=== PATIENT | female | born 1935 | race Caucasian/White ===

== ENCOUNTER 2017-04-15 13:00 | Inpatient (IN) | payer MEDICARE, BC ==
[~2017-04-15] VITALS: Ht 160 cm; Wt 84.1 kg
--- NOTE | ~2017-04-15 | OR ---
PATIENT'S NAME: PANCHO HANSEN [facility] AGE: 81 Y [address] ROOM: [place] [address] LOCATION: [facility] ADMIT DATE: 04/25/2017 OR/Procedure Report DISCHARGE DATE: FAMILY PHYSICIAN: Pancho Presley ATTENDING PHYSICIAN: ALLISON RUSHING SURGEON: Allison Rushing MD PULLING UNIT FLOORHAND: 1. KELLEN Romero. 2. Tam Stapleton CST/S3B MULTI SENSOR OPERATOR. DATE OF PROCEDURE: 04/25/2017 PREOPERATIVE DIAGNOSIS: Degenerative joint disease, left knee. POSTOPERATIVE DIAGNOSIS: Degenerative joint disease, left knee. OPERATION: Left total knee arthroplasty with computer navigation. ANESTHESIA: Spinal anesthesia plus adductor canal block plus periarticular local anesthesia (ropivacaine with epinephrine and Toradol). ESTIMATED BLOOD LOSS: Less than 10 mL. DRAIN: None. SPECIMEN: None. COMPLICATIONS: None. IMPLANT SYSTEM: [place] Triathlon. 1. Size 3 left posterior stabilized femoral component. 2. Size 2 universal modular tibial baseplate. 3. A 9 mm posterior stabilized size 2 X3 tibial polyethylene insert. 4. A 29 mm asymmetric X3 patellar component. INDICATIONS FOR SURGERY: Pancho Hansen is an 81-year-old female who presents with advanced left knee degenerative joint disease and associated severely compromised activities of daily living. The patient has decided to proceed with knee replacement after having been thoroughly counseled regarding the associated risks, benefits, and limitations. We have specifically reviewed the risks and implications of infection, deep venous thrombosis, pulmonary embolism, mortality, neurovascular complications, blood transfusion (and associated potential for disease transmission or transfusion reaction), stiffness, instability, mechanical deterioration of the components (due to wear and or loosening), and the potential need for revision. We have also emphasized the importance of active involvement and compliance with post- operative physical therapy as a means of optimizing range of motion and PATIENT'S NAME: PANCHO HANSEN [facility] AGE: 81 Y [address] ROOM: [place] [address] LOCATION: [facility] ADMIT DATE: 04/25/2017 OR/Procedure Report DISCHARGE DATE: FAMILY PHYSICIAN: Pancho Presley ATTENDING PHYSICIAN: ALILSON RUSHING functional recovery. Informed consent has been granted. DESCRIPTION OF PROCEDURE: The patient was positioned supine after administration of anesthesia and prophylactic antibiotics. A well-padded pneumatic tourniquet was placed around the left proximal thigh, and the left lower extremity was prepped and draped with vigilant sterile technique. The patient's name as well as the intended operative side and procedure were confirmed with a verbal time-out involving myself, the circulating nurse, the scrub nurse, and the anesthesiologist. Examination under anesthesia demonstrated a moderate effusion. There were no active skin lesions or masses. There was no erythema. There was no abnormal warmth. Range of motion under anesthesia was from full extension to 125 degrees of flexion. There was no ligamentous insufficiency. The left lower extremity was elevated and exsanguinated with an Esmarch wrap, and the pneumatic tourniquet was inflated to 300mmHg. The knee was approached through a longitudinal midline incision. A medial parapatellar arthrotomy was performed and the patella was everted. Examination of the joint space demonstrated a large amount of benign-appearing translucent synovial fluid. There was generalized mild nonproliferative synovitis. There was a 5 mm loose body at the posterior aspect of the medial compartment. The cruciate ligaments were intact. There were small osteophytes at the medial femoral condyle, lateral femoral condyle, medial tibial plateau, inferior patella, and lateral patella. There was full-thickness loss of articular cartilage involving approximately 50% of the medial half of the femoral trochlea, 80% of the medial femoral condyle, and a 2 cm diameter region at the medial half of the medial tibial plateau. There was high-grade partial-thickness articular cartilage loss involving the remainder of the medial compartment. There were moderate grade 3 degenerative changes at the medial facet of the patella and the apex of the patella. There were grade 2 degenerative changes at the lateral femoral condyle and lateral tibial plateau. The lateral meniscus was intact. There was moderate inner perimeter tearing and moderate chondrocalcinosis at the medial meniscus. Remnants of the menisci and cruciate ligaments were excised. The Listia computer navigation femoral tracker was pinned in place at the distal aspect of the femoral trochlea. Absence of motion between the femur and the tracking device was confirmed manually and visually. Femoral osseous landmarks were obtained in order to calibrate the computer navigation system. Landmarks included the center of rotation of the ipsilateral hip, the center-point of the distal femur, the femoral AP axis, 57 points on the medial femoral condyle articular surface, and 57 points on the lateral femoral condyle articular surface. The Listia computer navigation system was subsequently utilized PATIENT'S NAME: PANCHO HANSEN [facility] AGE: 81 Y [address] ROOM: [id number] [place], [place] [address] LOCATION: [facility] ADMIT DATE: 04/25/2017 OR/Procedure Report DISCHARGE DATE: FAMILY PHYSICIAN: Pancho Presley ATTENDING PHYSICIAN: ALLISON RUSHING to position the distal femoral resection block such that the distal femoral resection was performed perfectly perpendicular to the femoral mechanical axis. The distal femoral resection was performed with a [employer] oscillating saw. The Listia computer navigation tibial tracker was pinned in place at the anterior aspect of the tibial plateau. Absence of motion between the tibia and the tracking device was confirmed manually and visually. Tibial osseous landmarks were obtained in order to calibrate the computer navigation system. Landmarks included the center-point of the tibial plateau, the AP tibial axis, 57 points on the medial tibial plateau articular surface, 57 points on the lateral tibial plateau articular surface, the medial malleolus, and the lateral malleolus. The Listia computer navigation system was subsequently utilized to position the proximal tibial resection block such that the proximal tibial resection was performed perfectly perpendicular to the tibial mechanical axis. The proximal tibial resection was performed with a [employer]ision oscillating saw. Perpendicularity of the tibial resection with respect to the tibial shaft axis was reconfirmed by inserting a spacer- block attached to an extramedullary guide carolyn. External rotation of the anterior and posterior femoral resections was set parallel to the epicondylar axis and carefully adjusted in order to create a rectangular flexion gap. The box resection was performed with a reciprocating saw. Anterior and posterior chamfer resections were performed with the oscillating saw. Posterior condyle osteophytes were excised with an osteotome. All other osteophytes were excised with a rongeur. Resection of all remnants of the menisci was reconfirmed. Flexion and extension gaps were confirmed to be symmetric and well balanced with a spacer-block technique. The patella resection was performed with an oscillating saw such that the composite thickness of the reconstructed patella was equivalent to the thickness of the [place] patella. Patella tracking was optimal, and there was no need for a lateral retinacular release. All trial components were removed and all prepared osseous surfaces were thoroughly irrigated with pulsatile saline lavage and dried prior to cementing all three components in a single stage using [place] Simplex cement containing pre-mixed tobramycin. All extruded excess cement was removed. The entire joint space was thoroughly inspected and thoroughly irrigated with bacteriostatic pulsatile saline lavage to assure that there was no residual debris of any sort. Final range of motion was from full extension (with no passive hyperextension) to 130 degrees of flexion. Patella tracking was reconfirmed to be optimal. There was very good anteroposterior stability at 90 degrees of flexion. There PATIENT'S NAME: PANCHO HANSEN [facility] AGE: 81 Y [address] ROOM: [place] [address] LOCATION: [facility] ADMIT DATE: 04/25/2017 OR/Procedure Report DISCHARGE DATE: FAMILY PHYSICIAN: Pancho Presley ATTENDING PHYSICIAN: ALLISON RUSHING was 0 mm of medial lift-off to valgus stress in full extension. There was 1 mm of lateral lift-off to varus stress in full extension. The arthrotomy was closed with multiple simple and [id number] interrupted #1 Vicryl. Subcutaneous tissues were thoroughly re-irrigated with bacteriostatic pulsatile saline lavage. Subcutaneous tissues were re- approximated with simple buried interrupted #0 Vicryl sutures. The skin was closed with simple buried interrupted 2-0 Vicryl sutures followed by surgical noam. The dressing consisted of Xeroform gauze, 4x4 gauze, ABD pads and two 6-inch Jason Wraps. There were no intra-operative complications. It should be noted that the physician's assistant customer service manager played an active, integral role throughout this entire operation. By providing expert retraction, they greatly facilitated and expedited safe and effective exposure of the distal femur, proximal tibia and patella for preparation and implantation of the components. They were also actively involved in the patient's positioning, prepping and draping, as well as wound closure. MD POLO PARKS/grover /[id number] d: t: 09/08/17 1205, OPERATIVE SUMMARY
--- NOTE | ~2017-04-15 | CON ---
PATIENT'S NAME: PANCHO HANSEN [facility] AGE: 81 Y [address] ROOM: [place] [address] LOCATION: [facility] ADMIT DATE: 04/25/2017 Consultation DISCHARGE DATE: 04/28/2017 FAMILY PHYSICIAN: Pancho Presley ATTENDING PHYSICIAN: Grant Francis REFERRING PHYSICIAN: Thiago Stephenson MD REFERRING PHYSICIAN: Grant Francis MD REASON FOR CONSULT: Continued bradycardia. HISTORY OF PRESENT ILLNESS: This is an 81-year-old female who underwent a left knee replacement and has been bradycardic since surgery. She normally sees Dr. Crowley from [facility] and had seen him on 04/18/2017. At that time, her heart rate was reported at 71. She states that she carries a history of pulmonary embolus with DVT x2. She had recently worn a Holter monitor, mainly for a tachycardic event, although she cannot decipher which tachycardia she had. She was then placed on Tiazac 240 mg and had been doing fairly well. She has also been on long-term anticoagulation since her DVT and PE. She is complaining of some mild lightheadedness or dizziness. She denies orthopnea or PND, and no problems with increased shortness of breath. There is no report of chest heaviness or tightness with this, and she has not had any problems with increased edema. Her Tiazac has been held since April 25, and her heart rates have improved from 38 to 51 to 56 beats per minute. PAST MEDICAL HISTORY: 1. Essential hypertension. 2. 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 3. Hyperlipidemia. 4. Osteoporosis. 5. Shingles. 6. Varicose veins. 7. History of glaucoma. PAST SURGICAL HISTORY: 1. She has had tonsillectomy and adenoidectomy. 2. D and C. 3. Endometrial biopsy. 4. Steroid injection in the right knee. ALLERGIES: NONE TO MEDICATIONS. PATIENT'S NAME: PANCHO HANSEN [facility] AGE: 81 Y [address] ROOM: [place] [address] LOCATION: [facility] ADMIT DATE: 04/25/2017 Consultation DISCHARGE DATE: 04/28/2017 FAMILY PHYSICIAN: Pancho Presley ATTENDING PHYSICIAN: Grant Francis CURRENT MEDICATIONS: 1. Tiazac 240 mg p.o. every day, currently on hold. 2. Cozaar 100 mg every day. 3. Neurontin 600 mg every h.s. 4. Aspirin 81 mg daily. 5. Colace 100 mg b.i.d. 6. Eliquis 5 mg b.i.d. 7. [place] every 4 hours as needed for pain. FAMILY HISTORY: She had a sister with breast cancer. Father had coronary artery disease at age 65. Mother had coronary artery disease, hypertension, and CVA. Paternal grandfather had chronic leukemia. Paternal uncle had diabetes mellitus. She has a brother with hypertension. SOCIAL HISTORY: She is . Her has Parkinson's, and she is the sole caregiver. She does not use tobacco. REVIEW OF SYSTEMS: GENERAL: She states she feels pretty good. HEAD: No history of headache. EYES: No blurred vision or double vision. EARS: No problems with hearing. NOSE: No epistaxis or rhinorrhea. MOUTH: No gingival bleeding. THROAT: Denies sore throat, hoarseness, or difficulty swallowing. PULMONARY: She has had a pulmonary embolus. She denies shortness of breath, orthopnea, or PND. She has had mild edema at times. CARDIOVASCULAR: Per HPI. GASTROINTESTINAL: Negative for nausea, vomiting, or diarrhea. No melena or hematochezia. No problems with GI bleed on Eliquis. GENITOURINARY: Negative for urinary frequency or urgency. MUSCULOSKELETAL: She has osteoarthritis and is post knee surgery as well as right knee steroid injection. ENDOCRINE: No diabetes mellitus. No hyper or hypothyroidism. No polyuria or polydipsia. NEUROLOGIC: She has idiopathic neuropathy and currently is complaining of some lightheadedness in the setting of a heart rate of 51 to 56. PHYSICAL EXAMINATION: VITAL SIGNS: Blood pressure is 130/70, heart rate is now 51 to 56. She is afebrile. SKIN: Warm, dry, and pink. HEENT: Pupils equal, round, and react briskly. PATIENT'S NAME: PANCHO HANSEN [facility] AGE: 81 Y [address] ROOM: [address] [address] LOCATION: [facility] ADMIT DATE: 04/25/2017 Consultation DISCHARGE DATE: 04/28/2017 FAMILY PHYSICIAN: Pancho Presley ATTENDING PHYSICIAN: Grant Francis NECK: Soft and supple. No lymphadenopathy or thyromegaly. JVD is flat. LUNGS: Lung sounds are clear anteriorly and posteriorly without evidence of wheezes, rales, or rhonchi. CARDIOVASCULAR: Regular with normal S1 and S2; without murmur, rub, or click. ABDOMEN: Obese, but soft. Bowel sounds are present in all 4 quadrants. No rebound tenderness is noted. Left knee is in a dressing and is dry and intact. There is no edema noted. Distal pulses are 2+/4. PSYCHIATRIC: She is alert and pleasant. ASSESSMENT: 1. Sinus bradycardia. Would recommend continuing to hold the Tiazac and probably would not do anything further. Would have her follow up with her primary care physician for possibly a different medication for possibly additional blood pressure support if needed. 2. Hypertension. Blood pressures are doing pretty good. We will continue to monitor. The assessment and plan, history of present illness, and physical exam are per Dr. Quintana. ALFREDA GLOVER APRN FOR MD JODY KUMARP/grover /[id number] d: 04/28/17 1140 t: 04/29/17 1337, CONSULTATION REPORT
[2017-04-15] MEDS ORDERED: DILTIAZEM 24HR240 M1 PO (13:21)
[2017-04-15] MEDS ORDERED: ELIQUIS5 MG PO (13:22)
[2017-04-15] MEDS ORDERED: COZAAR100 MG PO (13:22)
[2017-04-15] MEDS ORDERED: BAYER CHILD81 MG PO (13:23)
[2017-04-15] MEDS ORDERED: THERA-VITE W/ B1 TAB PO (13:23)
[2017-04-15] MEDS ORDERED: CITRACAL+D(315M1 TAB PO (13:23)
[2017-04-15] MEDS ORDERED: GINGER ROOT550 MG PO (13:24)
[2017-04-15] MEDS ORDERED: BIOTIN10000 MC1 PO (13:24)
[2017-04-15] MEDS ORDERED: NEURONTIN300 MG PO (13:43)
[2017-04-25 13:40] LABS: BASOPHIL % 0.6 %; HEMOGLOBIN 12.8 g/dL (10.0-15.0); IMMATURE GRANULOCYTE % 0.6 %; LYMPHOCYTE # 0.5 K/uL (0.8-4.0); LYMPHOCYTE % 15.8 %; MCH 32.7 pg (27.0-34.0); MCHC 33.7 gm/dL (32.0-36.5); MCV 96.9 fl (83.0-98.0); MONOCYTE % 1.2 %; MPV 9.7 fl (9.4-12.4); NEUTROPHIL # (ANC) 2.8 K/uL (1.8-7.8); NEUTROPHIL % 81.8 %; NRBC % 0 /100WBC (0-0.00); PLATELET COUNT 179 K/uL (150-450); RBC 3.92 M/uL (3.00-5.00); RDW-CV 13.2 % (11.9-14.6); WBC 3.4 K/uL (4.0-11.0)
[2017-04-25 14:05] LABS: CALCIUM 7.9 mg/dL (8.5-10.5); CREATININE 1.1 mg/dL (0.5-1.1); TOTAL BILIRUBIN 0.4 mg/dL (0.0-1.5); TOTAL PROTEIN 6.2 g/dL (6.0-8.4)
[2017-04-26 05:04] LABS: HEMATOCRIT 34.4 % (30.0-46.0); HEMOGLOBIN 11.6 g/dL (10.0-15.0)
[2017-04-26 16:46] LABS: CPK 87 IU/L (21-215)
[2017-04-27 06:26] LABS: CALCIUM 8.5 mg/dL (8.5-10.5); MAGNESIUM 2.1 mg/dL (1.8-2.6)
[2017-04-28 05:29] LABS: ANION GAP 9.9 (10.0-19.0); CALCIUM 8.1 mg/dL (8.5-10.5); CREATININE 1.1 mg/dL (0.5-1.1); POTASSIUM 3.9 mMol/L (3.7-5.1)
== END 2017-04-28 13:45 | DRG 470 ==
LOC: G3N 04-25 05:02
PROVIDERS: Family Medicine; ADMIT Orthopaedic Surgery
PROC: 0SRD0J9 Replacement of Left Knee Joint with Synthetic Substitute, Cemented, Open Approach (ICD-10-PCS; principal; 2017-04-25)
PROC: XR2H021 Monitoring of Left Knee Joint using Intraoperative Knee Replacement Sensor, Open Approach, New Technology Group 1 (ICD-10-PCS; principal; 2017-04-25)
DX: M17.12 Unilateral primary osteoarthritis, left knee (principal); N18.3 Chronic kidney disease, stage 3 (moderate); R00.1 Bradycardia, unspecified; I12.9 Hypertensive chronic kidney disease with stage 1 through stage 4 chronic kidney disease, or unspecified chronic kidney disease; E78.5 Hyperlipidemia, unspecified; F41.9 Anxiety disorder, unspecified; M81.0 Age-related osteoporosis without current pathological fracture; Z86.718 Personal history of other venous thrombosis and embolism; Z86.711 Personal history of pulmonary embolism; Z79.01 Long term (current) use of anticoagulants; I25.10 Atherosclerotic heart disease of native coronary artery without angina pectoris
CPT/HCPCS: C1713; C1776; J0461; J0690; J1100; J1885; J1940; J2001; J2250; J2405; J2795; J7120

== ENCOUNTER → 2017-04-17 | Outpatient (CLI) | payer MEDICARE, BC ==
[~2017-04-17] MED LIST: BAYER CHILD81 MG PO; BIOTIN10000 MC1 PO; CITRACAL+D(315M1 TAB PO; COZAAR100 MG PO; DILTIAZEM 24HR240 M1 PO; ELIQUIS5 MG PO; GINGER ROOT550 MG PO; NEURONTIN300 MG PO; THERA-VITE W/ B1 TAB PO
== END ==
LOC: GNJRC 09:26
DX: Z01.818 Encounter for other preprocedural examination (principal); M17.12 Unilateral primary osteoarthritis, left knee